=== PATIENT | female | born 1980 | race Caucasian/White ===

== ENCOUNTER → 2021-07-03 | Outpatient (CLI) | payer OTHER ==
--- NOTE | 2021-07-03 15:55 | RAD ---
EXAMINATION: CT RIGHT KNEE WITHOUT IV CONTRAST CLINICAL HISTORY: Hardware complication right knee. Screws coming loose from previous surgery. TECHNIQUE: Noncontrast serial axial images obtained through the right knee with sagittal and coronal reconstructions. CT Dose Reduction Employed: One or more of the following individualized dose reduction techniques wer e utilized for this examination: 1. Automated exposure control 2. Adjustment of the mA and/or kV ac cording to patient size 3. Use of iterative reconstruction technique. COMPARISON: None FINDINGS: Postoperative changes likely related to tibial tuberosity transfer with 2 anterior to posterior direc chavez screws through the tibial tuberosity/proximal tibial metadiaphysis. No evidence of screw loosenin g or fracture on limited evaluation. Joint alignment maintained. Small small area of subchondral cysts in the inferior medial patellar fac et. No acute fracture. No joint effusion. Muscles unremarkable on limited evaluation. Distal quadrice ps and patellar tendons intact. IMPRESSION: Postoperative changes likely related to tibial tuberosity transfer with no evidence of hardware compl ication. Comparison with prior imaging may be beneficial to assess for interval change. Mild degenerative changes in the patella as described. Electronically signed by: Lexx Stephens DO (07/03/2021 3:52 PM) JADEN
== END ==
LOC: CT 14:17
PROVIDERS: ATTEND Nurse Practitioner Family
DX: M17.11 Unilateral primary osteoarthritis, right knee (principal); M25.861 Other specified joint disorders, right knee; Z98.890 Other specified postprocedural states
CPT/HCPCS: 73700

== ENCOUNTER 2021-09-08 14:00 | Emergency (ER) | payer OTHER ==
[~2021-09-08] VITALS: Ht 165.1 cm; Wt 58.5 kg
[2021-09-08] MEDS ORDERED: DEXAMETHASONE SOD PHOS 10 MG/ML VIAL. IVP ONE (15:00)
[2021-09-08] MEDS ORDERED: KETOROLAC 15 MG/ML VIAL. IVP ONE (15:00)
[2021-09-08] MEDS ORDERED: IV NORMAL SALINE 1,000ML 1,000 ML IV ONE (15:00)
[2021-09-08 15:49] LABS: BACTERIA,URINE 0 /HPF (0-FEW); CLARITY,URINE CLEAR; COLOR,URINE YELLOW; GLUCOSE,URINE NEG (NEG); NITRITE,URINE NEG (NEG); RBC,URINE 0 /HPF (0-2); SQUAMOUS EPITHELIAL CELL,UR OCC /LPF; UROBILINOGEN,URINE 0.2 mg/dL (0.2 mg/dL); WBC,URINE 0 /HPF (0-4)
[2021-09-08 16:12] LABS: BASO % 0 % (0-3); EOS % 0 % (0-3); HEMATOCRIT 37.1 % (36.0-47.0); HEMOGLOBIN 12.1 g/dL (12.0-15.5); LYMPH # 2.1 x10^3/uL (1.0-4.8); LYMPH % 22 % (24-48); MEAN CORPUSCULAR HEMOGLOBIN 29 pg (25-35); MEAN CORPUSCULAR HGB CONC 33 g/dL (31-37); MEAN CORPUSCULAR VOLUME 87 fL (79-100); MONO # 0.5 x10^3/uL (0.0-1.1); MONO % 6 % (0-9); NEUT # 6.6 x10^3uL (1.8-7.7); NEUT % 72 % (31-73); PLATELET COUNT 332 x10^3/uL (140-400); RED BLOOD COUNT 4.25 x10^6/uL (3.50-5.40); RED CELL DISTRIBUTION WIDTH 12.8 % (11.5-14.5); WHITE BLOOD COUNT 9.2 x10^3/uL (4.0-11.0)
[2021-09-08 16:24] LABS: ANION GAP 9 (6-14); BLOOD UREA NITROGEN 10 mg/dL (7-20); BUN/CREATININE RATIO 14 (6-20); CALCIUM 8.6 mg/dL (8.5-10.1); CARBON DIOXIDE 28 mmol/L (21-32); CHLORIDE 107 mmol/L (98-107); CREATININE 0.7 mg/dL (0.6-1.0); GFR 93.2; GLUCOSE 79 mg/dL (70-99); POTASSIUM 3.6 mmol/L (3.5-5.1); SODIUM 144 mmol/L (136-145)
[2021-09-08 16:40] LABS: ALBUMIN 3.5 g/dL (3.4-5.0); ALBUMIN/GLOBULIN RATIO 1.1 (1.0-1.7); ALK PHOS 57 U/L (46-116); ALT (SGPT) 13 U/L (14-59); AST (SGOT) 14 U/L (15-37); MAGNESIUM 1.9 mg/dL (1.8-2.4); TOTAL BILIRUBIN 0.2 mg/dL (0.2-1.0); TOTAL PROTEIN 6.8 g/dL (6.4-8.2)
[2021-09-08] MEDS ORDERED: ONDA4TAB12 PO (17:20)
--- NOTE | 2021-09-08 17:20 | PHYS DOC ---
Past History Past Medical History: No Pertinent History Past Surgical History: Other Additional Past Surgical Histo: right leg, removed hardware, and PRP Smoking: Non-smoker Alcohol Use: Occasionally Drug Use: None General Adult EDM: Chief Complaint: DIZZY/LIGHT HEADED HPI: HPI: 41-year-old female presents with report of "not feeling" with associated dizziness and nausea that has been ongoing for the past 2 days. Patient reports history of recent surgery to right knee on Wednesday. Patient reports removal of hardware as well as a PRP injection. Patient reports taking off her scopolamine patch the day before symptoms started. Patient thought symptoms would improve and might be secondary to retained anesthetic in her system. Patient reports she had taken some pain medication the day before but has since discontinued its use. Patient has been using [id number] ibuprofen and or Tylenol for pain or discomfort. Denies any fever or chills. Denies trauma. Denies known sick contacts. Patient also reports while at work she started to have some blurry vision and problems concentrating. Review of Systems: Review of Systems: Constitutional: Denies fever or chills Eyes: Denies redness or eye pain; reports blurry vision HENT: Denies nasal congestion or sore throat Respiratory: Denies cough or shortness of breath Cardiovascular: Denies chest pain or palpitations GI: Denies abdominal pain or vomiting; reports nausea : Denies dysuria or hematuria Musculoskeletal: Denies back pain; reports right leg pain and swelling at site of recent surgery Integument: Denies rash or skin lesions Neurologic: Denies headache, focal weakness or sensory changes; reports dizziness Complete systems were reviewed and found to be within normal limits, except as documented in this note. Current Medications: Current Meds: Current Medications Medications (Trade) Dose Ordered Sig/[facility] Start Time Stop Time Status Last Admin Dose Admin Dexamethasone Sodium Phosphate (Decadron) 10 mg 1X ONCE 09/08/21 15:00 09/08/21 15:21 DC 09/08/21 16:03 10 MG Ketorolac Tromethamine (Toradol 15mg Vial) 15 mg 1X ONCE 09/08/21 15:00 09/08/21 15:21 DC 09/08/21 16:03 15 MG Sodium Chloride 1,000 ml @ 1,000 mls/hr 1X ONCE 09/08/21 15:00 09/08/21 15:59 DC 09/08/21 16:10 1,000 MLS/HR Allergies: Allergies: Allergies Coded Allergies Type Severity Reaction Last Updated Verified No Known Drug Allergies 09/08/21 No Physical Exam: PE: Constitutional: Well developed, well nourished, no acute distress, non-toxic appearance HENT: Normocephalic, atraumatic, TMs clear bilaterally Eyes: PERRL, EOMI, conjunctiva normal, no discharge, no nystagmus Neck: Normal range of motion, no tenderness, supple, no meningeal signs Lungs & Thorax: No respiratory distress, equal chest rise and fall Abdomen: Soft, no tenderness Skin: Warm, dry, no erythema, no rash, right knee incision site clean dry and intact with sutures- no surrounding erythema appreciated. Extremities: No tenderness, ROM intact, 1+ edema to RLE Neurologic: Alert and oriented X 3, normal motor function, normal sensory function, no focal deficits noted Psychologic: Affect normal, judgment normal Current Patient Data: Labs: Laboratory Tests Test 09/08/21 15:00 09/08/21 15:35 09/08/21 15:47 Urine Collection Type Clean catch Urine Color Yellow Urine Clarity Clear Urine pH 6.5 Urine Specific Shepherd 1.010 Urine Protein Neg (NEG-TRACE) Urine Glucose (UA) Neg mg/dL (NEG) Urine Ketones (Stick) Neg mg/dL (NEG) Urine Blood Neg (NEG) Urine Nitrite Neg (NEG) Urine Bilirubin Neg (NEG) Urine Urobilinogen Dipstick 0.2 mg/dL (0.2 mg/dL) Urine Leukocyte Esterase Neg (NEG) Urine RBC 0 /HPF (0-2) Urine WBC 0 /HPF (0-4) Urine Squamous Epithelial Cells Occ /LPF Urine Bacteria 0 /HPF (0-FEW) White Blood Count 9.2 x10^3/uL (4.0-11.0) Red Blood Count 4.25 x10^6/uL (3.50-5.40) Hemoglobin 12.1 g/dL (12.0-15.5) Hematocrit 37.1 % (36.0-47.0) Mean Corpuscular Volume 87 fL (79-100) Mean Corpuscular Hemoglobin 29 pg (25-35) Mean Corpuscular Hemoglobin Concent 33 g/dL (31-37) Red Cell Distribution Width 12.8 % (11.5-14.5) Platelet Count 332 x10^3/uL (140-400) Neutrophils (%) (Auto) 72 % (31-73) Lymphocytes (%) (Auto) 22 % (24-48) L Monocytes (%) (Auto) 6 % (0-9) Eosinophils (%) (Auto) 0 % (0-3) Basophils (%) (Auto) 0 % (0-3) Neutrophils # (Auto) 6.6 x10^3uL (1.8-7.7) Lymphocytes # (Auto) 2.1 x10^3/uL (1.0-4.8) Monocytes # (Auto) 0.5 x10^3/uL (0.0-1.1) Eosinophils # (Auto) 0.0 x10^3/uL (0.0-0.7) Basophils # (Auto) 0.0 x10^3/uL (0.0-0.2) Prothrombin Time 10.3 SEC (9.4-11.4) Prothrombin Time INR 1.0 (0.9-1.1) Activated Partial Thromboplast Time 25 SEC (23-33) D-Dimer (Antoinette) 0.26 mg/L (0.00-0.50) Troponin I High Sensitivity 7 ng/L (4-50) Sodium Level 144 mmol/L (136-145) Potassium Level 3.6 mmol/L (3.5-5.1) Chloride Level 107 mmol/L (98-107) Carbon Dioxide Level 28 mmol/L (21-32) Anion Gap 9 (6-14) Blood Urea Nitrogen 10 mg/dL (7-20) Creatinine 0.7 mg/dL (0.6-1.0) Estimated GFR (Cockcroft-Gault) 93.2 BUN/Creatinine Ratio 14 (6-20) Glucose Level 79 mg/dL (70-99) Calcium Level 8.6 mg/dL (8.5-10.1) Magnesium Level 1.9 mg/dL (1.8-2.4) Total Bilirubin 0.2 mg/dL (0.2-1.0) Aspartate Amino Transferase (AST) 14 U/L (15-37) L Alanine Aminotransferase (ALT) 13 U/L (14-59) L Alkaline Phosphatase 57 U/L (46-116) Creatine Kinase 52 U/L (26-192) Creatine Kinase MB (Mass) ng/mL (0.0-3.6) Creatine Kinase MB Relative Index % (0-4) Total Protein 6.8 g/dL (6.4-8.2) Albumin 3.5 g/dL (3.4-5.0) Albumin/Globulin Ratio 1.1 (1.0-1.7) Vital Signs: Vital Signs Date Time Temp Pulse Resp B/P (MAP) Pulse Ox O2 Delivery O2 Flow Rate FiO2 09/08/21 14:51 96.8 75 20 117/80 (92) 100 Room Air EKG: EKG: @1616 NSR at 63bpm, NO ST elevation, QRS 78ms, QT/QTc 408/421ms Radiology/Procedures: Radiology/Procedures: [] Heart Score: C/O Chest Pain: N/A Course & Med Decision Making: Course & Med Decision Making Pertinent Lab studies reviewed. (See chart for details) Patient presents with report of generalized malaise, dizziness, and nausea been ongoing for the past 2 days. Patient also reports some blurry vision. Denies any headache. Denies fever or chills. Some mild swelling noted to left leg at site of recent surgery. Patient does not appear to have signs of a DVT. EKG stable. Labs obtained and posted to chart. D-dimer within normal limits. Given blurry vision, dizziness, and nausea cannot exclude the beginning of an atypical migraine. Symptomatic treatment provided including IV fluid hydration with interval improvement. Patient stable for discharge with outpatient follow-up with PCP. Discussed findings and plan with patient, who acknowledges understanding and agreement. Joe Disclaimer: Joe Disclaimer: This electronic medical record was generated, in whole or in part, using a voice recognition dictation system. Departure Departure: Impression: Primary Impression: Dizziness Additional Impression: Nausea Disposition: 01 HOME / SELF CARE / HOMELESS Condition: STABLE Referrals: KIERRA LEON DO, MPH (PCP) Patient Instructions: Dizziness, [id number], Nausea, Adult, [id number]-[id number] Scripts Ondansetron (ONDANSETRON ODT) 4 Mg Tab.rapdis 1 TAB PO PRN Q6-8HRS PRN for NAUSEA, #16 TAB Prov: MELVA ECHEVERRIA DO 09/08/21 MELVA ECHEVERRIA DO Sep 08, 2021 17:20
[2021-09-08] MEDS ORDERED: ONDANSETRON PF 4 MG/2 ML VIAL. IVP ONE (17:30)
[2021-09-08 17:37] VITALS: BP 118/87
--- NOTE | 2021-09-08 19:23 | EKG ---
[address] [id number] Test Date: 2021-09-08 Test Time: 16:16:25 Pat Name: JOB MONROE Department: Room: Gender: F Infantryman: : 1980 Requested By: MELVA ECHEVERRIA Order Number: [id number] Reading MD: Cyrus Hoang Measurements Intervals [place] Rate: 63 P: 58 SD: 154 QRS: 59 QRSD: 78 T: 50 QT: 408 QTc: 421 Interpretive Statements SINUS RHYTHM NORMAL ECG RI6.02 No previous ECG available for comparison Electronically Signed On 09-12-2021 13:48:13 CDT by Cyrus Hoang
== END 2021-09-08 17:50 | disposition home or self-care (01) ==
LOC: ER 14:00
DX: R42 Dizziness and giddiness (principal); R11.0 Nausea; M79.604 Pain in right leg; H53.8 Other visual disturbances
CPT/HCPCS: 36415; 80053; 81001; 82553; 83735; 84484; 85025; 85379; 85610; 85730; 93005; 96361; 96374; 96375; 99284; J1100; J1885; J2405; J7030